=== PATIENT | male | born 1995 | race Caucasian/White ===

== ENCOUNTER 2018-02-06 19:43 | Emergency (ER) | payer OTHER ==
[2018-02-06] MEDS ORDERED: predniSONE 20 MG TAB ONE (20:14)
[2018-02-06] MEDS ORDERED: hydrOXYzine Pamoate 25 mg Capsule ONE (20:14)
== END 2018-02-06 20:20 | disposition home or self-care (01) ==
LOC: ERS 19:43
DX: L40.0 Psoriasis vulgaris (principal)
CPT/HCPCS: 93005; J7506; Q0177